=== PATIENT | female | born 1980 | race Two or more races ===

== ENCOUNTER 2017-10-30 11:47 | Emergency (ER) | payer MEDICAID ==
[~2017-10-30] VITALS: Ht 175.3 cm; Wt 99.8 kg
[2017-10-30] MEDS ORDERED: NKM (11:57)
[2017-10-30] MEDS ORDERED: HYDROcodone/Acetamin 7.5/325 tab ORAL ONE (12:15)
--- NOTE | 2017-10-30 12:29 | Emergency Room Report ---
History of Present Illness General Chief Complaint: Lower Extremity Injury Source: Patient Present Illness HPI 37-year-old female presents to the emergency department complaining of 8 out of 10 in severity left knee and left ankle pain status post mechanical fall yesterday. Pt. reports pain exacerbated with walking and weight bearing. Pt. denies obvious deformity, hitting her head or LOC. Denies numbness tingling or loss of sensation or gross motor movements of the extremities, incontinence of bowel or bladder. Denies CP, Palpitations, LOC, AMS, dizziness, Changes in Vision, Sensation, paresthesias, or a sudden severe headache. Allergies: Coded Allergies: No Known Allergies (Unverified , 10/30/17) Patient History Past Medical History: see triage record Past Surgical History: none Pertinent Family History: none Last Menstrual Period: last month Now: No Reviewed Nursing Documentation: PMH: Agreed; PSxH: Agreed Nursing Documentation-PMH Past Medical History: No Stated History Review of Systems All Other Systems: negative except mentioned in HPI Physical Exam Vital Signs Date Time Temp Pulse Resp B/P (MAP) Pulse Ox O2 Delivery O2 Flow Rate FiO2 10/30/17 11:52 98.0 124 16 116/78 94 Room Air 98.1 Sp02 EP Interpretation: reviewed, normal General Appearance: alert, GCS 15, non-toxic, mild distress Head: normocephalic, atraumatic ENT: hearing grossly normal, normal voice Neck: full range of motion Respiratory: lungs clear, normal breath sounds, speaking full sentences Cardiovascular #1: regular rate, rhythm, no edema, normal capillary refill Musculoskeletal: back normal, normal range of motion - with pain. , swelling - lateral left knee, and ST swelling of the left ankle. , other - negative anterior and posterior drawer signs, no obvious increased laxity noted, tender - TTP to the lateral and anterior left knee, mild swelling noted, no obvious deformity, no increased laxity. TTP to the left ankle. Neurologic: alert, oriented x3, responsive, motor strength/tone normal, sensory intact, speech normal, grossly normal Psychiatric: judgement/insight normal Skin: normal color, no rash, warm/dry, well hydrated Lymphatic: no adenopathy Medical Decision Making PA Attestation Dr. Da Silva is my supervising Physician whom patient management has been discussed with. Diagnostic Impression: Primary Impression: Knee effusion, left Additional Impressions: Left knee sprain Qualified Codes: S83.92XA - Sprain of unspecified site of left knee, initial encounter Left ankle sprain Qualified Codes: S93.402A - Sprain of unspecified ligament of left ankle, initial encounter ER Course 37-year-old female presents to the emergency department complaining of 8 out of 10 in severity left knee and left ankle pain status post mechanical fall yesterday. Pt. reports pain exacerbated with walking and weight bearing. Pt. denies obvious deformity, hitting her head or LOC. Denies numbness tingling or loss of sensation or gross motor movements of the extremities, incontinence of bowel or bladder. Denies CP, Palpitations, LOC, AMS, dizziness, Changes in Vision, Sensation, paresthesias, or a sudden severe headache. Ddx considered but are not limited to Fracture, dislocation, contusion, Sprain/ Strain/Spasm, Effusion Vital signs: are WNL, pt. is afebrile H&PE are most consistent with musculoskeletal injury will perform imaging to r/ o fractures/dislocations. ORDERS: - X-ray Right ankle 3 views - negative for fx, Dislocation, or significant soft tissue injury, per preliminary read in ED, and signed by ANNIA Severino , my supervising physician has reviewed, and agrees with my interpretation. ED INTERVENTIONS: - Percocet PO -Left Knee Immobilizer Splint applied by body technician. Pt. remains neurovascularly intact. --Patient is provided with crutches and instructed on their use d/w pt. conservative treatment, and to follow up with an [facility]. pt given a list of primary care clinics for follow up to receive ortho referral from. d/w pt. to return to the ED with worsening or new symptoms. DISCHARGE: At this time pt. is stable for d/c to home. Will provide printed patient care instructions, and any necessary prescriptions. Care plan and follow up instructions have been discussed with the patient prior to discharge. Other X-Ray Diagnostic Results Other X-Ray Diagnostic Results #1: X-Ray ordered: Left Knee # of Views/Limited Vs Complete: 3 View Indication: Pain EP Interpretation: Yes ANNIA Xray: Interpretation reviewed, by supervising MD, and agrees with findings. Interpretation: no dislocation, no soft tissue swelling, no fractures Impression: Other - mild effusion Electronically Signed by: Yajaira Severino PA-C Other X-Ray Diagnostic Results #2: X-Ray ordered: Left Ankle # of Views/Limited Vs Complete: 3 View Indication: Pain EP Interpretation: Yes PA Xray: Interpretation reviewed, by supervising MD, and agrees with findings. Interpretation: no dislocation, no fractures, other - lateral ST swelling Impression: Other - Lateral ST swelling- abnormal Electronically Signed by: Yajaira Severino PA-C Last Vital Signs Date Time Temp Pulse Resp B/P (MAP) Pulse Ox O2 Delivery O2 Flow Rate FiO2 10/30/17 12:19 98.0 10/30/17 11:52 124 16 116/78 94 Room Air Disposition: HOME, SELF-CARE Condition: Stable Scripts Ibuprofen* (MOTRIN*) 600 Mg Tablet 600 MG ORAL THREE TIMES A DAY, #20 TAB 0 Refills Prov: Yajaira Severino 10/30/17 Hydrocodone Bit/Acetaminophen 5-325* (NORCO 5-325*) 1 Each Tablet 1 TAB ORAL Q6H PRN for For Pain, #10 TAB 0 Refills Prov: Yajaira Severino 10/30/17 Patient Instructions: Ankle Sprain, Knee Effusion, Feba-gl-Ylov Additional Instructions: Take medications as directed. Follow up with a Wellness Instructor in 3-5 days, even if your symptoms have resolved. --Please review list of primary care clinics, if you do not already have a primary care provider Return sooner to ED if new symptoms occur, or current symptoms become worse. Do not drink alcohol, drive, or operate heavy machinery while taking Radom as this may cause drowsiness. - Please note that this Emergency Department Report was dictated using [employer] technology software, occasionally this can lead to erroneous entry secondary to interpretation by the dictation equipment. Yajaira Severino Oct 30, 2017 12:29
[2017-10-30] MEDS ORDERED: IBUPROFEN600 MG ORAL (13:45)
[2017-10-30] MEDS ORDERED: NORCO 5-325 TA1 EACH ORAL (13:45)
[2017-10-30 14:03] VITALS: BP 134/82
--- NOTE | 2017-10-31 10:48 | Diagnostic Imaging Report ---
Indication: left ankle pain Comparison: None Findings: 3 views of the left ankle obtained. No acute fracture, malalignment, periostitis, or osteochondral defects are identified. Soft tissues are unremarkable. Impression: No acute findings
--- NOTE | 2017-10-31 10:48 | Diagnostic Imaging Report ---
Indication: Pain 3 views of the left knee were obtained. Findings: No acute fracture, malalignment, or joint effusion are identified. Joint space is relatively well-maintained. Impression: Negative for acute injury
== END 2017-10-30 14:09 | disposition home or self-care (01) ==
LOC: EMR 13:30
DX: S83.92XA Sprain of unspecified site of left knee, initial encounter (principal); S93.402A Sprain of unspecified ligament of left ankle, initial encounter; W19.XXXA Unspecified fall, initial encounter; Y93.9 Activity, unspecified; Y92.9 Unspecified place or not applicable
CPT/HCPCS: 99284